=== PATIENT | female | born 1975 | race Two or more races ===

== ENCOUNTER 2023-07-23 17:26 | Emergency (ER) | payer MEDICAID ==
[~2023-07-23] VITALS: Ht 160 cm; Wt 65.9 kg
[2023-07-23 17:37] VITALS: TEMP 98
[2023-07-23 19:40] VITALS: BP 132/67; PULSE 74; RESP 18
== END 2023-07-23 20:26 | disposition home or self-care (01) ==
LOC: EMS 17:27
DX: T14.8XXA Other injury of unspecified body region, initial encounter (principal)
CPT/HCPCS: 99282; Z7502

== ENCOUNTER 2023-11-24 17:18 | Emergency (ER) | payer MEDICAID ==
[~2023-11-24] VITALS: Ht 144.8 cm; Wt 70.5 kg
[2023-11-24 17:27] VITALS: BP 138/88; PULSE 97; RESP 16; TEMP 97.4; O2SAT 98
[2023-11-24] MEDS: HYDROCORTISONE 0.5% 30 GM CREAM TP ONE (20:09)
== END 2023-11-24 20:22 | disposition home or self-care (01) ==
LOC: EMS 17:18
DX: R21 Rash and other nonspecific skin eruption (principal)
CPT/HCPCS: 99282; Z7502; Z7610

== ENCOUNTER 2024-07-17 09:38 | Emergency (ER) | payer MEDICAID ==
[~2024-07-17] VITALS: Ht 154.9 cm; Wt 72.7 kg
[2024-07-17 09:47] VITALS: TEMP 97.7
[2024-07-17 13:04] VITALS: BP 135/74; PULSE 84; RESP 18; O2SAT 99
== END 2024-07-17 13:06 | disposition home or self-care (01) ==
LOC: EMS 09:38
DX: R21 Rash and other nonspecific skin eruption (principal); F41.9 Anxiety disorder, unspecified
CPT/HCPCS: 99282; Z7502

== ENCOUNTER 2024-10-06 09:46 | Emergency (ER) | payer MEDICAID ==
[~2024-10-06] VITALS: Ht 152.4 cm; Wt 70.9 kg
[2024-10-06 09:49] VITALS: TEMP 97.5
[2024-10-06] MEDS ORDERED: HYDR-4062 PO (11:38)
[2024-10-06] MEDS ORDERED: BACI28.410 TP (11:38)
[2024-10-06] MEDS ORDERED: IBUP-1554 PO (11:38)
[2024-10-06] MEDS ORDERED: CEPH-558 PO (11:38)
[2024-10-06] MEDS: PERTUSS(ACELL),DIPH,TET/PF 0.5 ML SYRINGE [ADULT] IM. ONE (12:17)
[2024-10-06] MEDS: CEPHALEXIN MONOHYDRATE 500 MG CAPSULE PO ONE (12:20)
[2024-10-06] MEDS: BACITRACIN 0.9 GM PACKET OINTMENT TP ONE (12:22)
[2024-10-06] MEDS: IBUPROFEN 600 MG TABLET PO ONE (12:22)
[2024-10-06] MEDS: HYDROCODONE/ACETAMINOPHEN 5-325 MG TABLET PO ONE (12:22)
[2024-10-06 12:32] VITALS: BP 145/74; PULSE 72; RESP 18; O2SAT 98
== END 2024-10-06 12:33 | disposition home or self-care (01) ==
LOC: EMS 09:53
DX: S67.190A Crushing injury of right index finger, initial encounter (principal); W23.0XXA Caught, crushed, jammed, or pinched between moving objects, initial encounter; Y93.89 Activity, other specified; Y92.89 Other specified places as the place of occurrence of the external cause; Y99.8 Other external cause status
CPT/HCPCS: 90471; 90715; 99284